=== PATIENT | male | born 1985 | race Caucasian/White ===

== ENCOUNTER 2020-10-07 19:08 | Inpatient (IN) | payer SELFPAY ==
[2020-10-07 19:09] VITALS: BP 141/78; PULSE 85; RESP 14; TEMP 36.3; O2SAT 100; BMI 27.1
--- NOTE | 2020-10-07 19:22 | ED.VIS.GEN ---
History of Present Illness Chief Complaint: Substance Abuse Informant: Patient Narrative: 34-year-old male presents for detox. He states he injects heroin. He states his been doing this on and off for years. His last detox was about a year ago in [place]. He states his last use was yesterday. He denies other significant medical problems but states when he detoxes he starts to wheeze. He usually gets sick. He states he only has mild symptoms. Past Medical History - Allergies and Home Meds Allergies/Adverse Reactions: Allergies No Known Allergies Allergy (Verified 10/07/20 19:11) Prior records reviewed: Yes Past Medical History: None Surgical History: noncontributory Lives: Alone Smoking Status: Unknown if ever smoked Alcohol: None Drugs: Heroin - Family History Maternal Family History: Reports: Heart Disease Paternal Family History: Reports: Heart Disease Review of Systems General: Denies: Chills, Fever, Sweats Eyes: Denies: Visual changes - bilaterally, Diplopia ENT: Denies: Rhinorrhea, Sore throat Cardiovascular: Denies: Chest pain, Palpitations Respiratory: Denies: Dyspnea, Cough, Dyspnea on exertion Gastrointestinal: Denies: Abdominal pain, Nausea, Vomiting, Diarrhea, Melena, Hematochezia Genitourinary: Denies: Dysuria, Hematuria, Frequency Musculoskeletal: Denies: Back pain, Extremity Pain Skin: Denies: Rash, Wounds Neurological: Denies: Parasthesia, Numbness Psych: Denies: Suicidal thoughts, Suicidal ideations Physical Exam Vital Signs/Narrative: Vital Signs Temp Pulse Resp BP Pulse Ox 10/07/20 19:09 97.4 F L 85 14 141/78 H 100 Inital Vital Signs reviewed: Yes General: Unkempt, No Acute Distress Head: Normocephalic, Atraumatic Eyes: Perrl, EOMI ENT: Moist mucous membranes. Negative for: No rhinorrhea Cardiovascular: Regular rate, Regular rhythm Respiratory: No distress, CTA bilaterally Extremities: Nontender, No edema Skin: Normal color, No rash. Negative for: Cyanosis, Diaphoresis Neurological: Alert, Oriented x3 Psychological: Normal affect, Normal Mood Diagnostic/Tx/Re-eval Laboratory Data 10/07/20 10/07/20 10/07/20 19:30 19:53 19:53 WBC 8.1 RBC 4.90 Hgb 14.0 Hct 40.6 MCV 82.9 MCH 28.6 MCHC 34.5 RDW Std Deviation 41.3 RDW Coeff of [place] 13.8 Plt Count 332 MPV 8.6 Immature Gran % (Auto) 0.400 Neut % (Auto) 83.6 H Lymph % (Auto) 10.7 L Mccreary % (Auto) 5.3 Eos % (Auto) 0.0 Baso % (Auto) 0.0 Absolute Neuts (auto) 6.8 Absolute Lymphs (auto) 0.87 Nucleated RBC % 0 Sodium 139 Potassium 3.5 Chloride 106 Carbon Dioxide 25.0 Anion Gap 8 BUN 15 Creatinine 0.93 Estim Creat Clear Calc 115.56 Est GFR (MDRD) Af Amer 119 Est GFR (MDRD) Non-Af 99 BUN/Creatinine Ratio 16.2 Glucose 160 H Calcium 9.4 Total Bilirubin 0.80 AST 8 L ALT 18 Alkaline Phosphatase 72 Total Protein 9.2 H Albumin 3.7 Globulin 5.5 H Albumin/Globulin Ratio 0.7 L Urine Opiates Screen POSITIVE H Urine Methadone Screen NEGATIVE Ur Barbiturates Screen NEGATIVE Ur Phencyclidine Scrn NEGATIVE Ur Amphetamines Screen POSITIVE H U Methamphetamin-MDMA NEGATIVE U Benzodiazepines Scrn NEGATIVE Urine Cocaine Screen NEGATIVE U Cannabinoids Screen NEGATIVE Ur Drug Screen Comment Ethyl Alcohol 10/07/20 19:53 WBC RBC Hgb Hct MCV MCH MCHC RDW Std Deviation RDW Coeff of [place] Plt Count MPV Immature Gran % (Auto) Neut % (Auto) Lymph % (Auto) Mccreary % (Auto) Eos % (Auto) Baso % (Auto) Absolute Neuts (auto) Absolute Lymphs (auto) Nucleated RBC % Sodium Potassium Chloride Carbon Dioxide Anion Gap BUN Creatinine Estim Creat Clear Calc Est GFR (MDRD) Af Amer Est GFR (MDRD) Non-Af BUN/Creatinine Ratio Glucose Calcium Total Bilirubin AST ALT Alkaline Phosphatase Total Protein Albumin Globulin Albumin/Globulin Ratio Urine Opiates Screen Urine Methadone Screen Ur Barbiturates Screen Ur Phencyclidine Scrn Ur Amphetamines Screen U Methamphetamin-MDMA U Benzodiazepines Scrn Urine Cocaine Screen U Cannabinoids Screen Ur Drug Screen Comment Ethyl Alcohol < 3.0 - Medical Decision Making 34-year-old male presenting for detox from heroin. Initially only having some mild symptoms. Lab work was unremarkable. Urine tox screen shows he is positive for marijuana and opioids. On reevaluation the patient had vomited on the floor and was given Zofran. Discussed with the hospitalist for admission and he was accepted. Patient stable on admission. Impression: 1. Heroin abuse 2. Nausea/vomiting ED Disposition - Plan for ED Patient: Disposition: Acute Care [facility]
--- NOTE | 2020-10-07 19:32 | ED.RN ---
Hilda ( mother called in and updated) [phone]
[2020-10-07 19:54] LABS: Amphetamine Urine VISTA POSITIVE (<1000 ng/mL); Barbiturate Urine VISTA NEGATIVE (< 200 ng/mL); Benzodiazepine Urine VISTA NEGATIVE (< 200 ng/mL); Cocaine Urine VISTA NEGATIVE (< 300 ng/mL); Ecstacy Urine VISTA NEGATIVE (< 500 ng/mL); Methadone Urine VISTA NEGATIVE (< 300 ng/mL); PCP Urine VISTA NEGATIVE (< 25 ng/mL); THC Urine VISTA NEGATIVE (< 50 ng/mL); Vista UDS pH Range 5
[2020-10-07 20:06] LABS: Absolute Lymphocyte Count 0.87 X10^3/uL (0.83-4.51); Absolute Neutrophil Count 6.8 X10^3/uL (2.0-7.7); Hematocrit 40.6 % (40-54); Lymphocyte # 0.87 X10^3/ul (4.0); Lymphocyte % 10.7 % (19-41); Mean Corp Hgb Conc 34.5 g/dL (32-36); Mean Corpuscular Hgb 28.6 pg (27.0-32.0); Mean Corpuscular Volume 82.9 fL (80-94); Mean Platelet Vol. 8.6 fl (6.2-12.0); Monocyte# 0.43 X10^3/uL; Monocyte% 5.3 % (0-10); NRBC Flagged by Analyzer 0 % (0-5); Neutrophil # 6.81 X10^3/uL (2.7-7.7); Neutrophil % 83.6 % (47-70); Platelet Count 332 K/mm3 (150-450); RBC Distribution Width CV 13.8 % (11.6-14.6); RBC Distribution Width SD 41.3 fl (35.1-43.9); White Blood Count 8.1 K/mm3 (4.4-11.0)
[2020-10-07 20:25] LABS: ALB/GLOB Ratio 0.7 RATIO (0.9-2.4); AST(SGOT) 8 U/L (15-37); Alanine Aminotransfer ALT/SGPT 18 U/L (16-61); Albumin, Serum 3.7 g/dL (3.2-5.0); Alkaline Phosphatase 72 U/L (45-117); Anion Gap 8 (5-15); BUN 15 mg/dL (7-18); BUN/Creat Ratio 16.2 RATIO (10-20); Calcium,Total 9.4 mg/dL (8.5-10.1); Chloride 106 mmol/L (98-107); Creatinine, Serum 0.93 mg/dL (0.70-1.30); EST Glomerular Filtration Rate 99 mL/min (>60); Est Glom Filt Rate - Afr Amer 119 mL/min (>60); Estimated Creatinine Clearance 115.56 ml/min; Globulin 5.5 g/dL (2.2-4.2); Glucose 160 mg/dL (74-106); Potassium 3.5 mmol/L (3.5-5.1); Protein, Total 9.2 g/dL (6.4-8.2); Sodium Level 139 mmol/L (136-145)
[2020-10-07 20:29] LABS: Alcohol, Blood (Medical)-Serum < 3.0 mg/dL
[2020-10-07 20:46] VITALS: RESP 16
[2020-10-07 21:10] VITALS: RESP 16
[2020-10-07] MEDS: Ondansetron ODT 4 MG Tablet PO (21:40)
--- NOTE | 2020-10-07 21:40 | PCM.HP.STD ---
Problem List (1) Opioid withdrawal Status: Acute History of Present Illness Date of Admission: 10/07/20 Chief Complaint: Opioid withdrawal symptoms. The patient is a 34 year old M with a significant history of IV drug use who presents to the emergency department with opiate withdrawal symptoms. His symptoms started a day before presentation. His last use was a day before presentation. His drug of choice is heroin. He shoots heroin in his bilateral arms. He is used about 2 g of heroin per day. He describes his withdrawal symptoms as insomnia; chills; restless leg; abdominal pain; and anxiety. Also he has nausea and vomiting. At emergency department he was vomiting profusely. Past Medical History Medical History: Medical History (Last Updated 10/07/20 @ 21:[address] Rios Mancia MD) Denies previous medical history IV drug user F19.90 Allergies No Known Allergies Allergy (Verified 10/07/20 19:11) Home Medications: Ambulatory Orders Medication Instructions Recorded NK 10/07/20 Surgical History: tonsillectomy Lives: Alone Smoking Status: Current every day smoker Tobacco Use: Cigarettes Alcohol: None Drugs: Heroin - *Family History Maternal History Items: Heart Disease Paternal History Items: Heart Disease Review of Systems Constitutional: Reports: Chills. Denies: Fever, Weight Change HEENT: Denies: Head Aches, Sinus Congestion, Sinus Drainage Cardiovascular: Denies: Chest Pain, Palpitations Respiratory: Denies: Cough, Shortness of breath at rest, Sputum production Gastrointestinal: Reports: Abdominal Pain, Nausea, Vomiting Genitourinary: Denies: Dysuria Musculoskeletal: Denies: Joint Pain, Joint Tenderness Skin: Denies: Rash, Wounds Neurological: Denies: Numbness, Tingling, Focal weakness Psychiatric: Reports: Anxiety. Denies: Depression, Homicidal Ideations, Suicidal Ideations Hematologic/ Lymphatic: Denies: Easy Bruising, Easy Bleeding VTE Information - Inpt Only VTE Present on Admission: No VTE Mechan Device Prophylaxis: None VTE Pharm Prophylaxis ordered?: No Reason prophylaxis not ordered:: Treatment Not Indicated - Low risk encourage ambulate. Patient Problems: Active and Suspected Problems (Last Updated 10/07/20 @ 21:[address] Rios Mancia MD) Opioid withdrawal (Acute) - Physical Exam Vitals/I&O's: Vital Signs Temp Pulse Resp BP Pulse Ox 97.4 F L 85 16 141/78 H 100 10/07/20 19:09 10/07/20 19:09 10/07/20 21:10 10/07/20 19:09 10/07/20 19:09 Oxygen Delivery Method Room Air Weight: 85.729 kg Body Mass Index (BMI) 27.1 General: Alert, Oriented x3, Cooperative HEENT: Atraumatic, PERRLA, EOMI, Normocephalic Neck: Supple, No JVD, Negative Carotid Bruits Lungs: Clear to auscultation, Normal air movement Cardiovascular: Regular rate, No murmurs Abdomen: Bowel Sounds Present, Soft, Non Tender Extremities: No edema, Capillary Refill Less than 3 Seconds Skin: No rashes, No breakdown Musculoskeletal: No Tenderness to Palpation of Joints or Extremities Neurological: Cranial nerves II-XII grossly intact Psych/Mental Status: Normal Affect, Appropriate Laboratory Results 10/07/20 19:30: Urine Opiates Screen POSITIVE H, Urine Methadone Screen NEGATIVE, Ur Barbiturates Screen NEGATIVE, Ur Phencyclidine Scrn NEGATIVE, Ur Amphetamines Screen POSITIVE H, U Methamphetamin-MDMA NEGATIVE, U Benzodiazepines Scrn NEGATIVE, Urine Cocaine Screen NEGATIVE, U Cannabinoids Screen NEGATIVE, Ur Drug Screen Comment 10/07/20 19:53: WBC 8.1, RBC 4.90, Hgb 14.0, Hct 40.6, MCV 82.9, MCH 28.6, MCHC 34.5, RDW Std Deviation 41.3, RDW Coeff of [place] 13.8, Plt Count 332, MPV 8.6, Immature Gran % (Auto) 0.400, Neut % (Auto) 83.6 H, Lymph % (Auto) 10.7 L, Shannon % (Auto) 5.3, Eos % (Auto) 0.0, Baso % (Auto) 0.0, Absolute Neuts (auto) 6.8, Absolute Lymphs (auto) 0.87, Nucleated RBC % 0 10/07/20 19:53: Sodium 139, Potassium 3.5, Chloride 106, Carbon Dioxide 25.0, Anion Gap 8, BUN 15, Creatinine 0.93, Estim Creat Clear Calc 115.56, Est GFR (MDRD) Af Amer 119, Est GFR (MDRD) Non-Af 99, BUN/Creatinine Ratio 16.2, Glucose 160 H, Calcium 9.4, Total Bilirubin 0.80, AST 8 L, ALT 18, Alkaline Phosphatase 72, Total Protein 9.2 H, Albumin 3.7, Globulin 5.5 H, Albumin/Globulin Ratio 0.7 L 10/07/20 19:53: Ethyl Alcohol < 3.0 Assessment/Plan All Active Problems (Last Updated 10/07/20 @ 21:[address] Rios Mancia MD) Opioid withdrawal (Acute) Opiate withdrawal Will start patient on Subutex and other supportive medication. Zofran IV as needed. Tobacco abuse Counselled Nicotine patch ordered DVT prophylaxis Low risk. Ambulate. Inpatient E&M: 44338 Init Hosp L2
[2020-10-07 21:41] VITALS: BP 129/86; PULSE 58; RESP 16; TEMP 36.9; O2SAT 99
[2020-10-07 22:07] VITALS: BMI 23.3
[2020-10-07 22:13] VITALS: BMI 23.4
[2020-10-07 22:15] VITALS: BP 121/69; PULSE 65; RESP 16; TEMP 37.1; O2SAT 100
[2020-10-07] MEDS: cloNIDine HCl 0.1 MG Tablet PO (22:31)
[2020-10-07] MEDS: traZODone 100 MG Tablet PO (22:31)
[2020-10-07] MEDS: Methocarbamol 750 MG Tablet 1500 MG PO (22:31)
[2020-10-07] MEDS: Buprenorphine HCl 2 MG TAB.SUBL SL (22:31)
[2020-10-07] MEDS: hydrOXYzine PAM 25 MG Capsule 50 MG PO (23:55)
[2020-10-07] MEDS: MELATONIN 3 MG TABLET PO (23:55)
[2020-10-07] MEDS: Dicyclomine 10 MG Capsule 20 MG PO (23:55)
[2020-10-07] MEDS: Gabapentin 300 MG Capsule PO (23:55)
[2020-10-08] MEDS: Ondansetron 4 MG/2 ML Vial IV (00:09)
[2020-10-08 02:30] VITALS: BP 111/66; PULSE 51; RESP 16; TEMP 36.8; O2SAT 96
--- NOTE | 2020-10-08 03:38 | PCS.PANDOC ---
PANDEMIC DOCUMENTATION INITIATED: Date: 10/07/20 Time: 2199
[2020-10-08] MEDS: Methocarbamol 750 MG Tablet 1500 MG PO (04:52)
[2020-10-08 06:03] VITALS: BP 115/66; PULSE 85; RESP 16; TEMP 36.7; O2SAT 98
[2020-10-08] MEDS: Buprenorphine HCl 2 MG TAB.SUBL SL ×3 (06:04→22:40)
[2020-10-08] MEDS: hydrOXYzine PAM 25 MG Capsule 50 MG PO ×2 (06:04→12:33)
[2020-10-08 08:00] VITALS: BP 115/81; PULSE 80; RESP 16; TEMP 37.1; O2SAT 98
[2020-10-08] MEDS: Gabapentin 300 MG Capsule PO ×2 (08:07→17:52)
[2020-10-08] MEDS: Acetaminophen 325 MG Tablet 650 MG PO (08:07)
--- NOTE | 2020-10-08 10:53 | ADDICTION ---
This verse writer met with patient in his room to conduct ASAM, MSE and DUDIT assessments and to plan for discharge. Patient was alert, oriented and participated appropriately. He states that he spoke with the Director of [facility] ([facility] in [place], [place]) prior to engaging with [facility] and plans to attend individual counseling and other recommended treatment modalities upon d/c from [facility]. He states that the agency is expecting his call. All documentation has been faxed to [facility] and placed in his chart.
--- NOTE | 2020-10-08 11:21 | CASEMGMT ---
Social Work Note Pt is listed as being self-pay. Per PFS notes, pt declined ER self-pay, Declined HCAP application. SW met with pt regarding self-pay. Pt confirms he has no insurance currently. Pt states he works at [employer] and they don't offer insurance. Pt states he had [employer], but let it lapse, states he will be reapplying for [employer]. Pt denied any financial concerns at this time. Pt is resident of [facility], unable to provide [facility] resources. Imani Fulton [employer]
--- NOTE | 2020-10-08 11:46 | PN_ITS ---
Patient Problems: Active and Suspected Problems (Last Updated 10/07/20 @ 21:[address] Rios Mancia MD) Opioid withdrawal (Acute) Subjective: No longer has any nausea however he has a little bit anxious Vitals/I&O's: Vital Signs Temp Pulse Resp BP Pulse Ox 98.8 F 80 16 115/81 H 98 10/08/20 08:00 10/08/20 08:00 10/08/20 08:00 10/08/20 08:00 10/08/20 08:00 Oxygen Delivery Method Room Air Weight: 163 lb Body Mass Index (BMI) 23.3 Intake and Output for Last 24 Hours 10/06/20 10/07/20 10/08/20 23:59 23:59 23:59 Intake Total 100 / 100 Balance 100 / 100 General: Alert, Oriented x3, Cooperative, No apparent distress HEENT: Atraumatic, PERRLA, EOMI, Normocephalic Oral: Moist Mucosa Neck: Supple, No JVD Lungs: Clear to auscultation, Normal air movement, No rhonchi, No wheeze, No rales Cardiovascular: Regular rate, Regular Rhythm, Normal S1, Normal S2, No murmurs Abdomen: Soft, Non Tender, Non-Distended, No Hepato-splenomegaly Extremities: No edema, Capillary Refill Less than 3 Seconds Skin: No rashes, No breakdown Neurological: Neuro grossly intact, Sensory exam intact to light touch and pain Psych/Mental Status: Restless Laboratory Results 10/07/20 19:30: Urine Opiates Screen POSITIVE H, Urine Methadone Screen NEGATIVE, Ur Barbiturates Screen NEGATIVE, Ur Phencyclidine Scrn NEGATIVE, Ur Amphetamines Screen POSITIVE H, U Methamphetamin-MDMA NEGATIVE, U Benzodiazepines Scrn NEGATIVE, Urine Cocaine Screen NEGATIVE, U Cannabinoids Screen NEGATIVE, Ur Drug Screen Comment 10/07/20 19:53: WBC 8.1, RBC 4.90, Hgb 14.0, Hct 40.6, MCV 82.9, MCH 28.6, MCHC 34.5, RDW Std Deviation 41.3, RDW Coeff of [place] 13.8, Plt Count 332, MPV 8.6, Immature Gran % (Auto) 0.400, Neut % (Auto) 83.6 H, Lymph % (Auto) 10.7 L, Towns % (Auto) 5.3, Eos % (Auto) 0.0, Baso % (Auto) 0.0, Absolute Neuts (auto) 6.8, Absolute Lymphs (auto) 0.87, Nucleated RBC % 0 10/07/20 19:53: Sodium 139, Potassium 3.5, Chloride 106, Carbon Dioxide 25.0, Anion Gap 8, BUN 15, Creatinine 0.93, Estim Creat Clear Calc 115.56, Est GFR (MDRD) Af Amer 119, Est GFR (MDRD) Non-Af 99, BUN/Creatinine Ratio 16.2, Glucose 160 H, Calcium 9.4, Total Bilirubin 0.80, AST 8 L, ALT 18, Alkaline Phosphatase 72, Total Protein 9.2 H, Albumin 3.7, Globulin 5.5 H, Albumin/Globulin Ratio 0.7 L 10/07/20 19:53: Ethyl Alcohol < 3.0 Current Medications Acetaminophen (Acetaminophen 325 Mg Tablet) 650 mg PO Q6H PRN PRN PRN Reason: Pain Score 1-10/Temp > 100.7 F Last Admin: 10/08/20 08:07 Dose: 650 mg Documented by: Buprenorphine HCl (Buprenorphine Hcl 2 Mg Tab.Subl) 4 mg SL Q8H CONSTANZA; Taper Stop: 10/10/20 22:59 Last Admin: 10/08/20 06:04 Dose: 4 mg Documented by: Clonidine (Clonidine Hcl 0.1 Mg Tablet) 0.1 mg PO Q8H PRN PRN PRN Reason: RESTLESSNESS Last Admin: 10/07/20 22:31 Dose: 0.1 mg Documented by: Dicyclomine HCl (Dicyclomine 10 Mg Capsule) 20 mg PO Q6H PRN PRN PRN Reason: Abdominal Discomfort Last Admin: 10/07/20 23:55 Dose: 20 mg Documented by: Gabapentin (Gabapentin 300 Mg Capsule) 300 mg PO Q8H PRN PRN PRN Reason: moderate to severe anxiety Last Admin: 10/08/20 08:07 Dose: 300 mg Documented by: Hydroxyzine Pamoate (Hydroxyzine Jane 25 Mg Capsule) 50 mg PO Q6H PRN PRN PRN Reason: mild anxiety Last Admin: 10/08/20 06:04 Dose: 50 mg Documented by: Loperamide HCl (Loperamide 2 Mg Capsule) 2 mg PO Q4H PRN PRN PRN Reason: LOOSE STOOLS Melatonin (Melatonin 3 Mg Tablet) 3 mg PO QHS PRN PRN PRN Reason: INSOMNIA Last Admin: 10/07/20 23:55 Dose: 3 mg Documented by: Methocarbamol (Methocarbamol 750 Mg Tablet) 1,500 mg PO Q6H PRN PRN PRN Reason: MUSCLE SPASM Last Admin: 10/08/20 04:52 Dose: 1,500 mg Documented by: Nicotine (Nicotine 21 Mg Patch) 21 mg TD DAILY [facility] Last Admin: 10/08/20 08:07 Dose: 21 mg Documented by: Nutritional Formula (Lactose Free) (Ensure Enlive 120 Ml Liquid) 120 ml PO 4X/DAY [facility] Last Admin: 10/08/20 08:07 Dose: 120 ml Documented by: Ondansetron HCl (Ondansetron 8 Mg Tablet) 8 mg PO Q8H PRN PRN PRN Reason: NAUSEA Ondansetron HCl (Ondansetron 4 Mg/2 Ml Vial) 4 mg IV Q8H PRN PRN PRN Reason: NAUSEA/VOMITING Last Admin: 10/08/20 00:09 Dose: 4 mg Documented by: Trazodone HCl (Trazodone 100 Mg Tablet) 100 mg PO QHS PRN PRN PRN Reason: INSOMNIA Last Admin: 10/07/20 22:31 Dose: 100 mg Documented by: STROKE Vital Signs/Narrative: Vital Signs Temp Pulse Resp BP Pulse Ox 10/08/20 08:00 98.8 F 80 16 115/81 H 98 Medical Necessity - Tobacco Use Smoking Status: Current every day smoker Tobacco Use: Cigarettes Assessment/Plan All Active Problems (Last Updated 10/07/20 @ 21:[address] Rios Mancia MD) Opioid withdrawal (Acute) 1. Acute opiate withdrawal/tobacco abuse -Continue with the opiate withdrawal protocol -His first dose he has significant nausea with interrupted but he feels better now with the Zofran -Counseled on tobacco cessation DVT: Ambulation Inpatient E&M: 42748 Subs Hosp L2
[2020-10-08 12:30] VITALS: BP 129/69; PULSE 79; RESP 16; TEMP 36.8; O2SAT 99
[2020-10-08] MEDS: cloNIDine HCl 0.1 MG Tablet PO (12:33)
[2020-10-08 15:10] VITALS: BP 110/57; PULSE 77; RESP 16; TEMP 36.8; O2SAT 98
--- NOTE | 2020-10-08 15:33 | NURSING ---
pt gave permission for this RN to provide update to his mother Hilda [phone]
[2020-10-08 22:39] VITALS: BP 112/68; PULSE 77; RESP 16; TEMP 36.8; O2SAT 92
[2020-10-08] MEDS: traZODone 100 MG Tablet PO (22:43)
[2020-10-09 06:07] VITALS: BP 109/65; PULSE 64; RESP 16; TEMP 36.4; O2SAT 98
[2020-10-09] MEDS: Buprenorphine HCl 2 MG TAB.SUBL SL ×3 (06:08→23:10)
[2020-10-09 08:46] VITALS: BP 108/64; PULSE 75; RESP 16; TEMP 36.4; O2SAT 98
[2020-10-09] MEDS: Methocarbamol 750 MG Tablet 1500 MG PO (08:54)
[2020-10-09] MEDS: cloNIDine HCl 0.1 MG Tablet PO ×2 (08:54→21:46)
[2020-10-09] MEDS: Gabapentin 300 MG Capsule PO (08:54)
[2020-10-09] MEDS: Dicyclomine 10 MG Capsule 20 MG PO (08:54)
--- NOTE | 2020-10-09 13:56 | PN_ITS ---
Patient Problems: Active and Suspected Problems (Last Updated 10/07/20 @ 21:[address] Rios Mancia MD) Opioid withdrawal (Acute) Subjective: Feels better than yesterday. No issues overnight Vitals/I&O's: Vital Signs Temp Pulse Resp BP Pulse Ox 97.6 F L 75 16 108/64 98 10/09/20 08:46 10/09/20 08:46 10/09/20 08:46 10/09/20 08:46 10/09/20 08:46 Oxygen Delivery Method Room Air Weight: 163 lb 0.016 oz Body Mass Index (BMI) 23.3 Intake and Output for Last 24 Hours 10/07/20 10/08/20 10/09/20 23:59 23:59 23:59 Intake Total 1200 / 1200 600 / 600 Balance 1200 / 1200 600 / 600 General: Alert, Oriented x3, Cooperative, No apparent distress HEENT: Atraumatic, PERRLA, EOMI, Normocephalic Oral: Moist Mucosa Neck: Supple, No JVD Lungs: Clear to auscultation, Normal air movement, No rhonchi, No wheeze, No rales Cardiovascular: Regular rate, Regular Rhythm, Normal S1, Normal S2, No murmurs Abdomen: Soft, Non Tender, Non-Distended, No Hepato-splenomegaly Extremities: No edema, Capillary Refill Less than 3 Seconds Skin: No rashes, No breakdown Neurological: Neuro grossly intact, Sensory exam intact to light touch and pain Psych/Mental Status: Normal affect/appropriate Current Medications Acetaminophen (Acetaminophen 325 Mg Tablet) 650 mg PO Q6H PRN PRN PRN Reason: Pain Score 1-10/Temp > 100.7 F Last Admin: 10/08/20 08:07 Dose: 650 mg Documented by: Buprenorphine HCl (Buprenorphine Hcl 2 Mg Tab.Subl) 2 mg SL Q8H CONSTANZA; Taper Stop: 10/10/20 22:59 Last Admin: 10/09/20 06:08 Dose: 2 mg Documented by: Clonidine (Clonidine Hcl 0.1 Mg Tablet) 0.1 mg PO Q8H PRN PRN PRN Reason: RESTLESSNESS Last Admin: 10/09/20 08:54 Dose: 0.1 mg Documented by: Dicyclomine HCl (Dicyclomine 10 Mg Capsule) 20 mg PO Q6H PRN PRN PRN Reason: Abdominal Discomfort Last Admin: 10/09/20 08:54 Dose: 20 mg Documented by: Gabapentin (Gabapentin 300 Mg Capsule) 300 mg PO Q8H PRN PRN PRN Reason: moderate to severe anxiety Last Admin: 10/09/20 08:54 Dose: 300 mg Documented by: Hydroxyzine Pamoate (Hydroxyzine Jane 25 Mg Capsule) 50 mg PO Q6H PRN PRN PRN Reason: mild anxiety Last Admin: 10/08/20 12:33 Dose: 50 mg Documented by: Loperamide HCl (Loperamide 2 Mg Capsule) 2 mg PO Q4H PRN PRN PRN Reason: LOOSE STOOLS Melatonin (Melatonin 3 Mg Tablet) 3 mg PO QHS PRN PRN PRN Reason: INSOMNIA Last Admin: 10/07/20 23:55 Dose: 3 mg Documented by: Methocarbamol (Methocarbamol 750 Mg Tablet) 1,500 mg PO Q6H PRN PRN PRN Reason: MUSCLE SPASM Last Admin: 10/09/20 08:54 Dose: 1,500 mg Documented by: Nicotine (Nicotine 21 Mg Patch) 21 mg TD DAILY [facility] Last Admin: 10/09/20 08:48 Dose: 21 mg Documented by: Nutritional Formula (Lactose Free) (Ensure Enlive 120 Ml Liquid) 120 ml PO 4X/DAY [facility] Last Admin: 10/09/20 08:57 Dose: 120 ml Documented by: Ondansetron HCl (Ondansetron 8 Mg Tablet) 8 mg PO Q8H PRN PRN PRN Reason: NAUSEA Ondansetron HCl (Ondansetron 4 Mg/2 Ml Vial) 4 mg IV Q8H PRN PRN PRN Reason: NAUSEA/VOMITING Last Admin: 10/08/20 00:09 Dose: 4 mg Documented by: Trazodone HCl (Trazodone 100 Mg Tablet) 100 mg PO QHS PRN PRN PRN Reason: INSOMNIA Last Admin: 10/08/20 22:43 Dose: 100 mg Documented by: Medical Necessity - Tobacco Use Smoking Status: Current every day smoker Tobacco Use: Cigarettes Assessment/Plan All Active Problems (Last Updated 10/07/20 @ 21:[address] Rios Mancia MD) Opioid withdrawal (Acute) 1. Acute opiate withdrawal/tobacco abuse -Continue with the opiate withdrawal protocol -His first dose he has significant nausea with interrupted but he feels better now with the Zofran -Counseled on tobacco cessation DVT: Ambulation Inpatient E&M: [id number] Subs Hosp L2
[2020-10-09 16:13] VITALS: BP 88/59; PULSE 72; RESP 18; TEMP 36.7; O2SAT 98
[2020-10-09 17:47] VITALS: BP 107/58; PULSE 88; RESP 16; TEMP 36.4; O2SAT 100
[2020-10-09] MEDS: hydrOXYzine PAM 25 MG Capsule 50 MG PO (17:56)
[2020-10-09 21:33] VITALS: BP 114/75; PULSE 71; RESP 16; TEMP 36.8; O2SAT 97
[2020-10-09] MEDS: traZODone 100 MG Tablet PO (23:10)
[2020-10-10 03:09] VITALS: BP 98/57; PULSE 69; RESP 18; TEMP 36.4; O2SAT 99
[2020-10-10] MEDS: Gabapentin 300 MG Capsule PO (09:49)
[2020-10-10 09:51] VITALS: BP 100/63; PULSE 85; RESP 16; TEMP 36.3; O2SAT 96
[2020-10-10 10:00] VITALS: PULSE 80
--- NOTE | 2020-10-10 10:29 | DCINST_ITS ---
- Discharge Diagnoses Current Active Problems: Current Active and Chronic Problems (Last Updated 10/07/20 @ 21:[address] Rios Mancia MD) Opioid withdrawal (Acute) You will use the following diet at home:: Regular Your food should be the consistency of: Regular Your liquids should be the consistency of: Regular/Thin Call your doctor if you observe: Fever of 101 or Higher, Shortness of breath, Dizziness, Fainting spells, Swelling in the ankles, Chest pain, Increased palpitations (irregular heartbeat) Allergies/Adverse Reactions: Allergies No Known Allergies Allergy (Verified 10/07/20 19:11) Medications to take at Discharge NK 10/07/20 Primary Care Physician: Care Physician,No Primary [Primary Care Provider] - Test Results: Test results from this visit will be discussed in further detail at your follow- up appointment, if applicable. Please Follow Up With: Rehab
[2020-10-10] MEDS: Buprenorphine HCl 2 MG TAB.SUBL SL (11:00)
[2020-10-10 11:07] VITALS: BP 100/61; PULSE 87; RESP 16; TEMP 36.4; O2SAT 99
--- NOTE | 2020-10-10 11:12 | DS.PCM_ITS ---
Discharge Date and Diagnosis - Problem List Patient Problems: Active and Suspected Problems (Last Updated 10/07/20 @ 21:[address] Rios Mancia MD) Opioid withdrawal (Acute) Date of Admission: 10/07/20 Date of Discharge: 10/10/20 - Primary Discharge Diagnosis Acute Problems: Active Problems (Last Updated 10/07/20 @ 21:[address] Rios Mancia MD) Opioid withdrawal (Acute) Hospital Course and Treatment Operations: None Procedures: None Summary of Care Provided: Per HPI: The patient is a 34 year old M with a significant history of IV drug use who presents to the emergency department with opiate withdrawal symptoms. His symptoms started a day before presentation. His last use was a day before presentation. His drug of choice is heroin. He shoots heroin in his bilateral arms. He is used about 2 g of heroin per day. He describes his withdrawal symptoms as insomnia; chills; restless leg; abdominal pain; and anxiety. Also he has nausea and vomiting. At emergency department he was vomiting profusely. Hospital Course: 1. Acute opiate withdrawal/tobacco abuse -Continue with the opiate withdrawal protocol -His first dose he has significant nausea with interrupted but he feels better now with the Zofran -Counseled on tobacco cessation -He is within the plan for discharge today expressed understanding of risk benefits of going home and would like to go home today. He has a counselor over in [place] and does not want to follow-up with [facility] here. Patient Problems: Active and Suspected Problems (Last Updated 10/07/20 @ 21:[address] Rios Mancia MD) Opioid withdrawal (Acute) - Physical Exam Vitals/I&O's: Vital Signs Temp Pulse Resp BP Pulse Ox 97.6 F L 87 16 100/61 99 10/10/20 11:07 10/10/20 11:07 10/10/20 11:07 10/10/20 11:07 10/10/20 11:07 Oxygen Delivery Method Room Air Weight: 163 lb 0.016 oz Body Mass Index (BMI) 23.3 Intake and Output for Last 24 Hours 10/08/20 10/09/20 10/10/20 23:59 23:59 23:59 Intake Total 1200 / 1200 1060 / 1060 1000 / 1000 Balance 1200 / 1200 1060 / 1060 1000 / 1000 General: Alert, Oriented x3, Cooperative, No apparent distress HEENT: Atraumatic, PERRLA, EOMI, Normocephalic Oral: Moist Mucosa Neck: Supple, No JVD Lungs: Clear to auscultation, Normal air movement, No rhonchi, No wheeze, No rales Cardiovascular: Regular rate, Regular Rhythm, Normal S1, Normal S2, No murmurs Abdomen: Soft, Non Tender, Non-Distended, No Hepato-splenomegaly Extremities: No edema, Capillary Refill Less than 3 Seconds Skin: No rashes, No breakdown Neurological: Neuro grossly intact, Sensory exam intact to light touch and pain Psych/Mental Status: Normal affect/appropriate Current Medications Acetaminophen (Acetaminophen 325 Mg Tablet) 650 mg PO Q6H PRN PRN PRN Reason: Pain Score 1-10/Temp > 100.7 F Last Admin: 10/08/20 08:07 Dose: 650 mg Documented by: Buprenorphine HCl (Buprenorphine Hcl 2 Mg Tab.Subl) 2 mg SL Q12H CONSTANZA; Taper Stop: 10/10/20 22:59 Last Admin: 10/10/20 11:00 Dose: 2 mg Documented by: Clonidine (Clonidine Hcl 0.1 Mg Tablet) 0.1 mg PO Q8H PRN PRN PRN Reason: RESTLESSNESS Last Admin: 10/09/20 21:46 Dose: 0.1 mg Documented by: Dicyclomine HCl (Dicyclomine 10 Mg Capsule) 20 mg PO Q6H PRN PRN PRN Reason: Abdominal Discomfort Last Admin: 10/09/20 08:54 Dose: 20 mg Documented by: Gabapentin (Gabapentin 300 Mg Capsule) 300 mg PO Q8H PRN PRN PRN Reason: moderate to severe anxiety Last Admin: 10/10/20 09:49 Dose: 300 mg Documented by: Hydroxyzine Pamoate (Hydroxyzine Jane 25 Mg Capsule) 50 mg PO Q6H PRN PRN PRN Reason: mild anxiety Last Admin: 10/09/20 17:56 Dose: 50 mg Documented by: Loperamide HCl (Loperamide 2 Mg Capsule) 2 mg PO Q4H PRN PRN PRN Reason: LOOSE STOOLS Melatonin (Melatonin 3 Mg Tablet) 3 mg PO QHS PRN PRN PRN Reason: INSOMNIA Last Admin: 10/07/20 23:55 Dose: 3 mg Documented by: Methocarbamol (Methocarbamol 750 Mg Tablet) 1,500 mg PO Q6H PRN PRN PRN Reason: MUSCLE SPASM Last Admin: 10/09/20 08:54 Dose: 1,500 mg Documented by: Nicotine (Nicotine 21 Mg Patch) 21 mg TD DAILY [facility] Last Admin: 10/10/20 09:49 Dose: 21 mg Documented by: Nutritional Formula (Lactose Free) (Ensure Enlive 120 Ml Liquid) 120 ml PO 4X/DAY [facility] Last Admin: 10/10/20 09:49 Dose: 120 ml Documented by: Ondansetron HCl (Ondansetron 8 Mg Tablet) 8 mg PO Q8H PRN PRN PRN Reason: NAUSEA Ondansetron HCl (Ondansetron 4 Mg/2 Ml Vial) 4 mg IV Q8H PRN PRN PRN Reason: NAUSEA/VOMITING Last Admin: 10/08/20 00:09 Dose: 4 mg Documented by: Trazodone HCl (Trazodone 100 Mg Tablet) 100 mg PO QHS PRN PRN PRN Reason: INSOMNIA Last Admin: 10/09/20 23:10 Dose: 100 mg Documented by: Call your doctor if you observe: Fever of 101 or Higher, Shortness of breath, Dizziness, Fainting spells, Swelling in the ankles, Chest pain, Increased palpitations (irregular heartbeat) Home Medications: Medications to take at Discharge NK 10/07/20 Primary Care Physician: Care Physician,No Primary [Primary Care Provider] - Please Follow Up With: Rehab Disposition: Home Minutes spent on discharge:: 35 Patient Condition:: Stable Medical Necessity - Tobacco Use Smoking Status: Current every day smoker Tobacco Use: Cigarettes Meaningful Use Info Meaningful Use Diagnoses (Choose all that apply): None applicable Inpatient E&M: 93740 Disch Hosp
== END 2020-10-10 12:30 | disposition home or self-care (01) | DRG 897 ==
LOC: ED 20:11 → MS3 21:35
PROVIDERS: Admitting Provider Hospitalist; Emergency Provider Student in an Organized Health Care Education/Training Program; Visit Provider Family Medicine
DX: F11.23 Opioid dependence with withdrawal (principal); F17.210 Nicotine dependence, cigarettes, uncomplicated
CPT/HCPCS: 80053; 80307; 80320; 85025; 99283; G0480; J2405